=== PATIENT | female | born 1975 | race African-American/Black ===

== ENCOUNTER 2018-05-22 15:20 | Outpatient (CLI) | payer OTHER | END 2018-05-22 19:51 | disposition home or self-care (01) | LOC: MAMMO 15:20 | DX: N64.4 Mastodynia (principal); N63.20 Unspecified lump in the left breast, unspecified quadrant ==

== ENCOUNTER 2019-08-15 09:52 | Emergency (ER) | payer OTHER ==
[~2019-08-15] VITALS: Ht 165.1 cm; Wt 80.7 kg
[2019-08-15 09:59] VITALS: TEMP 97.7
[2019-08-15 11:09] VITALS: BP 126/75
== END 2019-08-15 11:12 | disposition home or self-care (01) ==
LOC: ED 09:52
DX: S91.331A Puncture wound without foreign body, right foot, initial encounter (principal); W45.0XXA Nail entering through skin, initial encounter; Y92.89 Other specified places as the place of occurrence of the external cause
CPT/HCPCS: 90471; 90715; 99283

== ENCOUNTER 2020-01-19 09:08 | Outpatient (CLI) | payer OTHER | END 2020-01-19 20:26 | disposition home or self-care (01) | LOC: RAD 09:08 | DX: R07.9 Chest pain, unspecified (principal); R05 Cough; Z86.19 Personal history of other infectious and parasitic diseases ==

== ENCOUNTER 2020-03-30 09:35 | Outpatient (CLI) | payer OTHER | END 2020-03-30 22:05 | disposition home or self-care (01) | LOC: LABW 09:35 | PROVIDERS: ATTEND Family Medicine | DX: N89.8 Other specified noninflammatory disorders of vagina (principal); R53.83 Other fatigue | CPT/HCPCS: 36415; 81000; 87490; 87529; 87590 ==

== ENCOUNTER 2021-01-26 11:35 | Outpatient (CLI) | payer OTHER | END 2021-01-26 22:37 | disposition home or self-care (01) | LOC: RESP 11:35 | PROVIDERS: ATTEND Family Medicine | DX: M25.512 Pain in left shoulder (principal); R07.89 Other chest pain | CPT/HCPCS: 93005 ==

== ENCOUNTER 2021-02-03 12:37 | Outpatient (CLI) | payer OTHER | END 2021-02-03 20:07 | disposition home or self-care (01) | LOC: MAMMO 12:37 | PROVIDERS: ATTEND Family Medicine | DX: Z12.31 Encounter for screening mammogram for malignant neoplasm of breast (principal) ==

== ENCOUNTER 2021-08-27 07:48 | Outpatient (CLI) | payer OTHER | END 2021-08-27 20:58 | disposition home or self-care (01) | LOC: RAD 07:48 | PROVIDERS: ATTEND Nurse Practitioner Family | DX: L50.9 Urticaria, unspecified (principal) ==

== ENCOUNTER 2022-11-20 14:06 | Outpatient (CLI) | payer OTHER | END 2022-11-20 21:15 | disposition home or self-care (01) | LOC: MAMMO 14:06 | PROVIDERS: ATTEND Family Medicine | DX: Z12.31 Encounter for screening mammogram for malignant neoplasm of breast (principal) ==